=== PATIENT | male | born 1945 | race Caucasian/White ===

== ENCOUNTER 2017-01-04 00:32 | Day surgery (SDC) | payer MEDICARE ==
[~2017-01-04] VITALS: Ht 180.3 cm; Wt 73.5 kg
[~2017-01-04 00:32] MED LIST: ASPI-973 PO; BENA1TAB14 PO; CYCL10TA9 PO; METO-272 PO; OMEP40CA36 PO; SIMV20TA4 PO
[2017-01-04] MEDS ORDERED: Sodium Chloride LOK Flush 10 mL Syringe IV PRN (06:00)
[2017-01-04] MEDS ORDERED: fentaNYL-PF 50 mCg/mL 2 mL Inj IVPUSH PRN (06:00)
[2017-01-04 08:15] VITALS: BP 116/66; PULSE 63; RESP 14; O2SAT 99
[2017-01-04] MEDS: 0.9% Sodium Chloride 1,000 ML IV SCH ×2 (08:30→08:48)
[2017-01-04 08:54] VITALS: BP 93/59; PULSE 55; RESP 14; O2SAT 95
[2017-01-04 09:08] VITALS: BP 93/57; PULSE 58; RESP 14; O2SAT 97
--- NOTE | 2017-01-05 06:15 | ENDO ---
[address] [address] ENDOSCOPY PROCEDURE PATIENT: RAYNE SALOMON : 1945 MR#: [id number] ADMIT: 01/04/2017 JOB ID: [id number] DATE OF SERVICE: 01/04/2017 OPERATION: Esophagogastroduodenoscopy with biopsy. PREOPERATIVE DIAGNOSIS(ES): Gastroesophageal reflux disease. POSTOPERATIVE DIAGNOSIS(ES): Mild nonerosive gastritis. ANESTHESIA: Fentanyl 100 mcg, Versed 5 mg IV administered. COMPLICATIONS: None. BLOOD LOSS: Minimal. DESCRIPTION OF PROCEDURE: After risks and benefits were explained to the patient, informed consent was obtained. After anesthesia was administered, upper endoscope was inserted into mouth intubating to the esophagus, stomach, second portion of duodenum, and mucosa carefully examined. After the procedure was done, the scope was withdrawn and procedure terminated. FINDINGS: Upon inspection of the esophagus, the esophagus was normal without masses, ulcers, or lesions. Z-line located at 40 cm from incisors. Upon entering stomach, there was mild nonerosive gastritis that was seen. No masses, ulcers, or lesions were recognized. Retroflexion was normal at duodenal bulb. First and second portion normal. Biopsies taken of the antrum, body, and distal esophagus. IMPRESSION: Mild nonerosive gastritis. RECOMMENDATION: Await pathology results. Follow up in GI clinic as needed.
--- NOTE | 2017-01-07 10:36 | PATH ---
SURGICAL PATHOLOGY Attending Physician:Jacobo Thapa MD CASE STATUS: Signed Out PATIENT NAME: RAYNE SALOMON PID: [id number] : 1945 DATE COLLECTED:01/04/2017 16:16 SPECIMEN: 1: Stomach, Antrum, Biopsy 2: Gastric, Biopsy 3: Esophagus, Biopsy CLINICAL HISTORY: 1. ANTRUM BIOPSY 2. GASTRIC BODY BIOPSY 3. DISTAL ESOPHAGUS BIOPSY FINAL DIAGNOSIS: 1.GASTRIC ANTRUM BIOPSY: MILD CHRONIC GASTRITIS INVOLVING ANTRAL MUCOSA. Negative for evidence of Helicobacter. Negative for intestinal metaplasia. Negative for dysplasia and malignancy. 2.GASTRIC BODY BIOPSY: BENIGN FUNDIC GLAND POLYP, NEGATIVE FOR ATYPIA. Negative for evidence of Helicobacter. Negative for intestinal metaplasia. 3.DISTAL ESOPHAGUS BIOPSY: FRAGMENTS OF SQUAMOUS EPITHELIUM WITH MILD NONSPECIFIC REACTIVE CHANGES. No gastric-type epithelium identified. Negative for intraepithelial eosinophils. Negative for dysplasia and malignancy.ICD10 code K29.70 GROSS DESCRIPTION: The specimen is received in three formalin filled containers labeled with the patient's name. 1). The specimen is sublabeled "antrum" and consists of 2 portions of tissue which aggregate to 0.3 x 0.3 x 0.2 CM. The specimen is entirely submitted in cassette 1A. 2). The specimen is sublabeled "gastric body" and consists of a 0.2 x 0.2 x 0.2 CM portion of tissue which is entirely submitted in cassette 2A. 3). The specimen is sublabeled "distal esophagus" and consists of 2 tiny portions of tissue which aggregate to 0.3 x 0.2 x 0.2 CM. The specimen is entirely submitted in cassette 3A. 01/04/2017 [facility] MICRO DESCRIPTION: See diagnosis. ICD-9 CODES: CPT CODES: 1: 68193 2: 10766 3: 14754 Electronically Signed Out Marcelo Turner MD [facility] [address] [place] [address] Technical component performed at [facility], [facility] [address], [place], [address]
== END 2017-01-04 23:59 | disposition home or self-care (01) ==
LOC: END 00:32
PROVIDERS: ATTEND Internal Medicine Gastroenterology
DX: K29.50 Unspecified chronic gastritis without bleeding (principal); K31.7 Polyp of stomach and duodenum; K21.9 Gastro-esophageal reflux disease without esophagitis; I10 Essential (primary) hypertension; E78.5 Hyperlipidemia, unspecified; I48.91 Unspecified atrial fibrillation; Z80.0 Family history of malignant neoplasm of digestive organs; Z79.82 Long term (current) use of aspirin
CPT/HCPCS: 43239; G0500; J7030